=== PATIENT | female | born 1970 | race Hispanic/Latino ===

== ENCOUNTER 2022-04-28 00:44 | Emergency (ER) | payer OTHER ==
[~2022-04-28] VITALS: Ht 144.8 cm; Wt 46.7 kg
[2022-04-28 01:27] LABS: BASOPHILS % (AUTO) 0.2 % (0.0-5.0); EOSINOPHILS % (AUTO) 0.3 % (0.0-8.0); HEMATOCRIT 39.7 % (36-48); LYMPHOCYTES % (AUTO) 15.8 % (21.0-51.0); MEAN CORPUSCULAR HEMOGLOBIN 28.9 pg (27.0-33.0); MEAN CORPUSCULAR HGB CONC 34.3 g/dL (32.0-36.0); MEAN CORPUSCULAR VOLUME 84.3 fL (79-99); MONOCYTES % (AUTO) 4.2 % (3.0-13.0); NEUTROPHILS % (AUTO) 79.2 % (40.0-77.0); PLATELET COUNT (AUTO) 266 K/uL (130-400); RED BLOOD CELL COUNT(AUTO) 4.71 MIL/uL (4.00-5.50); RED CELL DISTRIBUTION WIDTH 12.1 % (11.0-15.5); WHITE BLOOD COUNT (AUTO) 10.3 K/uL (4.8-10.8)
[2022-04-28 01:32] LABS: APPEARANCE,URINE CLEAR (CLEAR); BILIRUBIN,URINE NEGATIVE (NEGATIVE); COLOR,URINE YELLOW (YELLOW); GLUCOSE, URINE (UA) NEGATIVE (NEGATIVE); HCG,QUALITATIVE URINE NEGATIVE (NEGATIVE); KETONES,URINE NEGATIVE (NEGATIVE); LEUKOCYTE ESTERASE ,URINE NEGATIVE (NEGATIVE); NITRATE,URINE NEGATIVE (NEGATIVE); OCCULT BLOOD,URINE LARGE (NEGATIVE); PROTEIN,URINE 100 mg/dL (NEGATIVE); UROBILINOGEN,URINE 0.2 mg/dL (0.2-1.0)
[2022-04-28 01:37] LABS: CREATININE 0.8 mg/dL (0.5-1.5); POTASSIUM 3.3 mmol/L (3.5-5.1)
[2022-04-28 01:44] LABS: ALBUMIN 4.1 g/dL (3.5-5.0); TOTAL PROTEIN, SERUM 7.8 g/dL (6.0-8.3)
[2022-04-28 01:45] LABS: BACTERIA,URINE Moderate /HPF (None Seen); RBC,URINE 51-100 /HPF (0-1)
[2022-04-28] MEDS ORDERED: KETOROLAC 30MG VIAL (30MG/ML) ONE (02:00)
[2022-04-28] MEDS ORDERED: ONDANSETRON 4MG INJ ONE (02:00)
[2022-04-28] MEDS ORDERED: KETOROLAC 30MG VIAL (30MG/ML) IVP ONE (02:00)
[2022-04-28] MEDS ORDERED: MORPHINE 4 MG SYG IVP ONE (02:00)
[2022-04-28] MEDS ORDERED: 0.9% NACL 500ML IV.SOLN 500 ML IV ONE (02:00)
[2022-04-28] MEDS ORDERED: ONDANSETRON 4MG INJ IVP ONE (02:00)
[2022-04-28] MEDS ORDERED: 0.9%NACL 1000ML 1,000 ML IV ONE (02:01)
[2022-04-28] MEDS ORDERED: MORPHINE 4 MG SYG ONE (02:01)
[2022-04-28 03:30] VITALS: BP 106/53
[2022-04-28] MEDS ORDERED: TAMSULOSIN HCL 0.4 MG CAP.ER.24H PO SCH (03:30)
[2022-04-28] MEDS ORDERED: CEFTRIAXONE 1G VIAL IVP ONE (04:00)
[2022-04-28] MEDS ORDERED: IBUP-2070 PO (05:03)
[2022-04-28] MEDS ORDERED: CEPH500B PO (05:03)
[2022-04-28] MEDS ORDERED: ONDA4TAB10 PO (05:03)
== END 2022-04-28 05:17 | disposition home or self-care (01) ==
LOC: EDH 00:44
DX: N20.1 Calculus of ureter (principal); E86.0 Dehydration; Z79.1 Long term (current) use of non-steroidal anti-inflammatories (NSAID)
CPT/HCPCS: 99284; 74176; 96374; 96375; 96361; 80053; 83690; 85025; 87077; 87088; 87186; 81001; 81025; 36415; J7030; J0696; J2405; J2270; J1885